=== PATIENT | male | born 1985 | race Caucasian/White ===

== ENCOUNTER 2024-05-17 20:30 | Emergency (ER) | payer BC ==
[~2024-05-17] VITALS: Ht 177.8 cm; Wt 130.0 kg
[2024-05-17 20:58] VITALS: BP 120/85; PULSE 90; TEMP 97.7; O2SAT 96
[2024-05-17 21:34] VITALS: RESP 16
[2024-05-17] MEDS: HYDROcodone/acetaminophen 10/325mg tab PO ONE (21:34)
[2024-05-17] MEDS: TETanus/Pertussis (Acell)/Diphther VAC/PF (Tdap-Adult) 0.5ml syringe IMVAC ONE (23:02)
[2024-05-17] MEDS: LIDOcaine 1% W/epiNEPHrine 1:100,000 20ml vial IJ ONE (23:19)
== END 2024-05-17 23:48 ==
LOC: ER 20:31
DX: S50.312A Abrasion of left elbow, initial encounter (principal); S80.212A Abrasion, left knee, initial encounter; S80.211A Abrasion, right knee, initial encounter; F12.90 Cannabis use, unspecified, uncomplicated; Z72.89 Other problems related to lifestyle; V89.2XXA Person injured in unspecified motor-vehicle accident, traffic, initial encounter; Y93.89 Activity, other specified; Y92.89 Other specified places as the place of occurrence of the external cause; Y99.8 Other external cause status
CPT/HCPCS: 12002; 71045; 90471; 90715; 99283; J7030; 99284; A6258; A6449